=== PATIENT | female | born 1955 | race Caucasian/White ===

== ENCOUNTER 2024-05-28 14:04 | Outpatient (RCR) | payer MEDICARE, OTHER, SELFPAY ==
[2024-05-28 14:15] VITALS: BP 138/71
[2024-05-28 14:35] VITALS: BP 121/80
[2024-05-28 14:40] VITALS: BP 109/78
== END 2024-06-14 23:59 | disposition home or self-care (01) ==
LOC: OID 14:04
PROVIDERS: ATTENDING PHYSICIAN Internal Medicine Hematology; FAMILY PHYSICIAN Internal Medicine
DX: E83.119 Hemochromatosis, unspecified (principal)
CPT/HCPCS: 99195

== ENCOUNTER 2024-06-25 13:51 | Outpatient (RCR) | payer MEDICARE, OTHER, SELFPAY ==
[2024-06-25 14:00] VITALS: BP 134/64
[2024-06-25 14:37] VITALS: BP 134/56
[2024-06-25 14:39] VITALS: BP 116/58
== END 2024-06-26 08:45 | disposition home or self-care (01) ==
LOC: OID 13:51
PROVIDERS: ATTENDING PHYSICIAN Internal Medicine Hematology; FAMILY PHYSICIAN Internal Medicine
DX: E83.119 Hemochromatosis, unspecified (principal)
CPT/HCPCS: 99195

== ENCOUNTER 2025-04-18 13:57 | Outpatient (RCR) | payer MEDICARE, OTHER, SELFPAY ==
[2025-04-18 14:27] LABS: Hematocrit 36.6 % (37.0-47.0); Hemoglobin 12.5 g/dL (12.0-16.0); Mean Corp Hgb Conc. 34.2 g/dL (33.0-37.0); Mean Corpuscular Volume 104.9 fL (81.0-99.0); Platelet Count 288 10^3/uL (130-400); Red Cell Dist. Width 12.4 % (11.5-14.5)
[2025-04-18 14:40] VITALS: BP 156/75
[2025-04-18 15:15] VITALS: BP 134/63
[2025-04-18 15:20] VITALS: BP 133/65
== END 2025-05-14 23:59 | disposition home or self-care (01) ==
LOC: OID 13:57
PROVIDERS: ATTENDING PHYSICIAN Internal Medicine Hematology
DX: E83.110 Hereditary hemochromatosis (principal)
CPT/HCPCS: 36415; 85025; 99195